=== PATIENT | male | born 1950 | race Two or more races ===

== ENCOUNTER 2020-07-15 12:16 | Emergency (ER) | payer MEDICARE, OTHER ==
[~2020-07-15] VITALS: Ht 170.2 cm; Wt 74.4 kg
[2020-07-15] MEDS ORDERED: MORPHINE SULFATE 4 MG/1 ML DISP.SYRIN IM ONE (12:45)
[2020-07-15] MEDS ORDERED: MORPHINE SULFATE 4 MG/1 ML DISP.SYRIN ONE (12:45)
--- NOTE | 2020-07-15 13:38 | NUR ---
Patient discharged to home in stable condition with brisk steady gait. Written and verbal after care instructions given to patient in [place] and English. Patient verbalized understanding & compliance of instructions. Stressed follow up with his primary doctor or return to ER for worsening s/s.
== END 2020-07-15 13:38 | disposition home or self-care (01) ==
LOC: ER 12:16
DX: R51.9 Headache, unspecified (principal); G89.21 Chronic pain due to trauma; S09.90XS Unspecified injury of head, sequela; Y00.XXXS Assault by blunt object, sequela
CPT/HCPCS: 96372; 99283; J2270; A4663

== ENCOUNTER 2020-10-06 12:38 | Emergency (ER) | payer MEDICARE, OTHER ==
[~2020-10-06] VITALS: Ht 170.2 cm; Wt 74.4 kg
--- NOTE | 2020-10-06 13:55 | NUR ---
pt refused blood draw, pt states that he is in a high to leave and needs px for [place]. notified.
[2020-10-06] MEDS ORDERED: KETOROLAC TROMETHAMINE 30 MG INJ ONE (13:59)
--- NOTE | 2020-10-06 14:30 | NUR ---
Patient discharged to home in stable condition. Written and verbal after care instructions given. Patient verbalizes understanding of instructions. Stressed follow up or return to ER for worsening s/s.pt walks in steady gait.
[2020-10-06 14:50] VITALS: BP 159/81
== END 2020-10-06 14:30 | disposition home or self-care (01) ==
LOC: ER 12:38
DX: R51.9 Headache, unspecified (principal); I10 Essential (primary) hypertension; R00.1 Bradycardia, unspecified; Z83.3 Family history of diabetes mellitus; Z82.49 Family history of ischemic heart disease and other diseases of the circulatory system
CPT/HCPCS: 93005; A4663; J1885

== ENCOUNTER 2020-10-12 06:20 | Emergency (ER) | payer MEDICARE, OTHER ==
[~2020-10-12] VITALS: Ht 170.2 cm; Wt 79.4 kg
[2020-10-12] MEDS ORDERED: HYDROMORPHONE 1 MG/1 ML DISP.SYRIN IV ONE (07:00)
--- NOTE | 2020-10-12 07:00 | NUR ---
Pt seen and examined by Dr Valverde.
[2020-10-12] MEDS ORDERED: HYDROCODONE/APAP 10-325 MG TABLET PO ONE (07:15)
[2020-10-12] MEDS ORDERED: HYDROCODONE/APAP 10-325 MG TABLET ONE (07:18)
--- NOTE | 2020-10-12 07:23 | NUR ---
Pt refused HL and lab draw, Dr Valverde.
[2020-10-12] MEDS ORDERED: IBUP-1953 PO (07:40)
[2020-10-12] MEDS ORDERED: ACET-2154 PO ×2 (07:40)
--- NOTE | 2020-10-12 07:53 | NUR ---
Patient discharged to home in stable condition. Written and verbal after care instructions given. Patient verbalizes understanding of instructions. Stressed follow up or return to ER for worsening s/s.
[2020-10-12 07:57] VITALS: BP 166/92
== END 2020-10-12 08:00 | disposition home or self-care (01) ==
LOC: ER 06:22
DX: K40.90 Unilateral inguinal hernia, without obstruction or gangrene, not specified as recurrent (principal); I10 Essential (primary) hypertension; Z87.01 Personal history of pneumonia (recurrent); Z59.0 Homelessness; Z83.3 Family history of diabetes mellitus; Z82.49 Family history of ischemic heart disease and other diseases of the circulatory system
CPT/HCPCS: A4663

== ENCOUNTER 2021-04-29 00:18 | Emergency (ER) | payer MEDICARE, OTHER ==
[~2021-04-29] VITALS: Ht 170.2 cm; Wt 83.9 kg
[~2021-04-29 00:18] MED LIST: ACET-2154 PO; IBUP-1953 PO
--- NOTE | 2021-04-29 00:50 | NUR ---
Dr. Middleton at bedside for MSE
[2021-04-29 01:10] LABS: HEMATOCRIT 42.2 % (36.7-47.1); MEAN CORPUSCULAR HEMOGLOBIN 30.9 uug (23.8-33.4); MEAN CORPUSCULAR VOLUME 90.3 fL (73.0-96.2); PLATELET COUNT (AUTO) 368 K/uL (152-348)
[2021-04-29 01:18] LABS: CARBON DIOXIDE 26 mmol/L (21-32); CHLORIDE 105 mmol/L (98-107); CREATININE 0.9 mg/dL (0.6-1.3); GLUCOSE 135 mg/dL (74-106); POTASSIUM 3.8 mmol/L (3.5-5.1); UREA NITROGEN, BLOOD 14 mg/dL (7-18)
[2021-04-29 01:24] LABS: ETHANOL < 3 MG/DL (0-0)
--- NOTE | 2021-04-29 01:25 | NUR ---
pt taken to CT via [facility]
[2021-04-29 01:27] LABS: ALANINE AMINOTRANSFERASE 48 U/L (16-63); ALKALINE PHOSPHATASE 71 U/L (50-136); ASPARTATE AMINOTRANSFERASE 27 U/L (15-37); BILIRUBIN,DIRECT 0.1 mg/dL (0.0-0.2); BILIRUBIN,TOTAL 0.3 mg/dL (0.2-1.0)
[2021-04-29 01:45] LABS: *BILIRUBIN,URIN NEGATIVE (NEGATIVE); *CLARITY,URINE CLEAR (CLEAR); *COLOR,URINE YELLOW (YELLOW); *KETONES,URINE NEGATIVE (NEGATIVE); *UROBILINOGEN,URINE 0.2 E.U./dl (NORMAL); LEUKOCYTE ESTERASE ,URINE NEGATIVE (NEGATIVE); NITRITE, URINE NEGATIVE (NEGATIVE); UGLUCOSE NEGATIVE (NEGATIVE)
[2021-04-29 01:52] LABS: *BLOOD, URINE TRACE (NEGATIVE)
[2021-04-29 01:54] LABS: BACTERIA,URINE NONE SEEN /HPF (NONE SEEN); RBC,URINE 0-3 /HPF (0-3); WBC,URINE NONE SEEN /HPF (0-3)
[2021-04-29 01:55] LABS: SQUAMOUS EPITHELIAL CELL,UR NONE SEEN /HPF (NONE SEEN)
[2021-04-29 01:56] LABS: *AMPHETAMINE, URINE NEGATIVE (NEGATIVE); *CANNABINOID, URINE NEGATIVE (NEGATIVE); *COCCAINE, URINE NEGATIVE (NEGATIVE); *OPIATE, URINE POSITIVE (NEGATIVE); *PHENCYCLIDINE SCREEN,URINE NEGATIVE (NEGATIVE)
--- NOTE | 2021-04-29 02:12 | NUR ---
pt returned from CT.
--- NOTE | 2021-04-29 06:34 | NUR ---
Patient given written and verbal discharge instructions. Patient verbalizes understanding of instructions. Patient is ambulatory with steady gait. Refuses offer of correction placement. Patient given list of available shelters in surrounding area. Patient taken to his car via wheelchair. pt denies pain. no sob. no chest pain.
[2021-04-29 06:36] VITALS: BP 149/98
[2021-04-29] MEDS ORDERED: HYDR-501 PO (13:08)
[2021-04-29] MEDS ORDERED: IBUP-1955 PO (13:08)
== END 2021-04-29 06:37 | disposition home or self-care (01) ==
LOC: ER 00:27
DX: S09.90XA Unspecified injury of head, initial encounter (principal); V48.4XXA Person boarding or alighting a car injured in noncollision transport accident, initial encounter; Y92.89 Other specified places as the place of occurrence of the external cause; Z59.00 Homelessness unspecified; Z83.3 Family history of diabetes mellitus; Z87.01 Personal history of pneumonia (recurrent); I51.7 Cardiomegaly; I70.0 Atherosclerosis of aorta
CPT/HCPCS: 36415; 70450; 71045; 83605; 83735; 84484; 85025; 85730; 87040; 93005; A4663; G0480

== ENCOUNTER 2021-04-29 12:43 | Emergency (ER) | payer MEDICARE, OTHER ==
[~2021-04-29] VITALS: Ht 172.7 cm; Wt 77.1 kg
--- NOTE | 2021-04-29 13:00 | NUR ---
pt c/o frontal throbbing headche radiating to the back. denies SOB, chestpain, no distress
[2021-04-29] MEDS ORDERED: IBUP-1955 PO (13:08)
[2021-04-29] MEDS ORDERED: HYDR-501 PO (13:08)
[2021-04-29 13:26] VITALS: BP 167/103
== END 2021-04-29 13:29 | disposition home or self-care (01) ==
LOC: ER 12:43
DX: I10 Essential (primary) hypertension (principal); Z76.0 Encounter for issue of repeat prescription; S09.90XD Unspecified injury of head, subsequent encounter; W19.XXXD Unspecified fall, subsequent encounter; Z59.02 Unsheltered homelessness
CPT/HCPCS: A4663